=== PATIENT | male | born 1985 | race Caucasian/White ===

== ENCOUNTER 2019-01-01 23:09 | Emergency (ER) | payer SELFPAY ==
[~2019-01-01] VITALS: Ht 170.2 cm; Wt 77.3 kg
[~2019-01-01 23:09] MED LIST: KEFLEX500 MG PO; NO HOME MEDICATIONS
[2019-01-01 23:28] VITALS: TEMP 96.8
[2019-01-02 00:07] LABS: BASO # 0.1 (0.0-0.2); BASO % 0.5 % (0.0-2.0); EOS % 0.2 % (0-4.0); GRAN # 14.6 (1.4-6.5); GRAN % 88.6 % (42.2-75.2); HEMATOCRIT 35.6 % (42.0-52.0); HEMOGLOBIN 11.2 g/dl (13.5-18.0); LYMPH # 1.2 (1.2-3.4); LYMPH % 7.2 % (20.0-51.0); MEAN CELL VOLUME 63 fl (80.0-100.0); MEAN CORPUSCULAR HEMOGLOBIN 20 pg (27.0-31.0); MEAN CORPUSCULAR HGB CONC 32 g/dl (33.0-37.0); MONO # 0.5 (0.1-0.6); PLATELET COUNT 288 K/mm3 (130-400); RED BLOOD COUNT 5.64 M/mm3 (4.20-5.60); REDCELL DISTRIBUTION WIDTH-CV 15.4 % (11.5-14.5)
[2019-01-02 00:15] LABS: ALANINE AMINOTRANSFERASE 35 U/L (21-72); ALBUMIN 4.4 gm/dL (3.5-5.0); ALKALINE PHOSPHATASE 65 U/L (50-136); ANION GAP 12 mmol/L (7-16); AST,SGOT 26 U/L (15-37); BILIRUBIN,TOTAL 0.7 mg/dL (0.0-1.0); BLOOD UREA NITROGEN 18 mg/dL (9-20); CALCIUM 9.4 mg/dL (8.4-10.2); CARBON DIOXIDE 25 mmol/L (22-30); CHLORIDE 101 mmol/L (98-107); CREATININE, serum 0.87 (0.66-1.25); GLUCOSE 185 mg/dL (74-106); LIPASE 37 U/L (23-300); MAGNESIUM 1.8 mg/dL (1.6-2.3); POTASSIUM 3.9 mmol/L (3.4-5.0); SODIUM 138 mmol/L (137-145); TOTAL PROTEIN 7.9 gm/dL (6.4-8.2)
[2019-01-02 00:32] LABS: COLLECTION METHOD CLEAN CATCH
[2019-01-02 00:41] LABS: ALCOHOL(ethanol),MEDICAL < 10 mg/dL; C-REACTIVE PROTEIN < 0.5 mg/dL (0.0-0.9)
[2019-01-02 00:50] LABS: MUCOUS Present /lpf; PH 7 (5-8); SQUAMOUS EPITHELIAL None Seen /hpf; URINE APPEARANCE Clear; URINE BACTERIA None Seen /hpf; URINE BILIRUBIN Negative (NEGATIVE); URINE BLOOD Negative (NEGATIVE); URINE COLOR Yellow; URINE GLUCOSE Negative (NEGATIVE); URINE KETONE Trace (NEGATIVE); URINE LEUKOCYTE ESTERASE Negative (NEGATIVE); URINE NITRATE Negative (NEGATIVE); URINE PROTEIN(semi-quant) 1+ (NEGATIVE); URINE RBC 0-2 /hpf; URINE UROBILINOGEN Negative (NEGATIVE)
[2019-01-02] MEDS ORDERED: FLAGYL500 MG PO (03:02)
[2019-01-02] MEDS ORDERED: CIPRO 500MG TA500 MG PO (03:02)
[2019-01-02] MEDS ORDERED: PHENERGAN 25 TA25 MG PO (03:02)
[2019-01-02 03:23] VITALS: BP 122/66; PULSE 68
[2019-01-02] MEDS ORDERED: MOTRIN 600600 MG/TAB PO (18:19)
[2019-01-02] MEDS ORDERED: COLACE 100100 MG/CAP PO (18:19)
[2019-01-02] MEDS ORDERED: PERCOCET 325 MG1 TA2 PO (18:20)
== END 2019-01-02 03:23 | disposition home or self-care (01) ==
LOC: COL.ER 23:09
PROVIDERS: Emergency Medicine
DX: R11.10 Vomiting, unspecified (principal); R10.84 Generalized abdominal pain
CPT/HCPCS: J1170; J2405; J2550; J7030; Q9967

== ENCOUNTER 2019-01-02 08:36 | Observation (INO) | payer SELFPAY ==
[2019-01-02] VITALS (12 sets, daily range): BP systolic 115–140; BP diastolic 72–87; PULSE 18–99; TEMP 97.1–98.8
[~2019-01-02] VITALS: Ht 170.2 cm; Wt 78.1 kg
[~2019-01-02 08:36] MED LIST changes: +CIPRO 500MG TA500 MG PO; +FLAGYL500 MG PO; +PHENERGAN 25 TA25 MG PO
--- NOTE | 2019-01-02 13:01 | NUR ---
Patient alert and oriented, answers questions appropriately. See assessment. Abdomen soft, non distended, tender to palpation. Bowel sounds hyperactive x4 quads. +Flatus. Last oral intake 1999, 01-01-19. Acknowledges need for appendectomy. No other c/o at this time.
--- NOTE | 2019-01-02 14:00 | NUR ---
Chlorhexadine shower completed.
--- NOTE | 2019-01-02 15:07 | NUR ---
SW met with the patient to discuss a discharge plan. The patient lives in [place]. The patient does not use any DME and reports independence with ADLs. The patient's PCP is Linda Delaney APRN and [place] [facility] [place] stated he cannot afford medications. The patient does not have advanced directives in the EMR, but was interested in obtaining a DPOA-HC form. SW provided the form to the patient. The patient is self pay; [facility] contacted [facility] in finance to refer the patient for financial services. The patient plans to return home upon discharge. SW will continue to follow.
[2019-01-02] MEDS ORDERED: MOTRIN 600600 MG/TAB PO (18:19)
[2019-01-02] MEDS ORDERED: COLACE 100100 MG/CAP PO (18:19)
[2019-01-02] MEDS ORDERED: PERCOCET 325 MG1 TA2 PO (18:20)
--- NOTE | 2019-01-02 19:05 | NUR ---
TO ROOM 347 FROM PACU. REPORT RECEIVED. ASSUMED CARE. ASSESSMENT COMPLETE. VS STABLE. LAP SITES [id number] SET. DENIES PAIN. UP TO BATHROOM-VOIDED WITHOUT DIFFICULTY. ICE WATER AND JUICE-REFUSING ANY OTHER CLEARS. DENIES N/V. ORIENTED TO ROOM. CALL LIGHT WITHIN REACH. BED IN LOW POSITION. WHEELS LOCKED. WILL MONITOR.
--- NOTE | 2019-01-03 03:41 | NUR ---
HAS DONE WELL THROUGH THE NIGHT. VOIDING. AMBULATED IN THE HALLWAY X2 TIMES FOR APPROX 300 FEET TOTAL. TOLERATING PO. VS STABLE. LAP SITESX3 CLEAN-MACKAY SET. DENIES QUESTIONS OR CONCERNS-STATES HE SHOULD BE DISCHARGED THIS AM. DID RECEIVED ONE DOSE OF PERCOCET AT 0100. WILL CONTINUE TO MONITOR.
[2019-01-03 03:58] VITALS: BP 121/56; PULSE 67; TEMP 98.6
--- NOTE | 2019-01-03 09:00 | NUR ---
Patient alert and oriented, answers questions appropriately. See assessment. Abdomen soft, non tender, non distended. Bowel sounds active x4 quads. +Flatus. Lap sites with edges well approximated, no drainage noted. Post op exercises reviewed. No c/o at this time.
[2019-01-03 09:24] VITALS: BP 119/65; PULSE 67; TEMP 98.3
--- NOTE | 2019-01-03 11:42 | NUR ---
Discharge instructions reviewed with patient and family, verbalized understanding. Discharged via wheelchair to auto/home with family [id number].
--- NOTE | 2019-01-03 13:45 | NUR ---
Initial visit; Patient thanked [employer] for looking in on him and offering God's blessings.
== END 2019-01-03 11:40 | disposition home or self-care (01) ==
LOC: COL.ER 08:36 → SURG 08:57
PROVIDERS: ADMIT Surgery
DX: K35.80 Unspecified acute appendicitis (principal); F17.210 Nicotine dependence, cigarettes, uncomplicated; F17.220 Nicotine dependence, chewing tobacco, uncomplicated
CPT/HCPCS: G0378; J0744; J2270; J2310; J2405; J2543; J2704; J7030; J7120

== ENCOUNTER → 2019-01-19 | Outpatient (CLI) | payer SELFPAY ==
[~2019-01-19] MED LIST changes: +COLACE 100100 MG/CAP PO; +MOTRIN 600600 MG/TAB PO; +PERCOCET 325 MG1 TA2 PO
== END ==
LOC: MC.RAD 08:28
DX: D17.1 Benign lipomatous neoplasm of skin and subcutaneous tissue of trunk (principal)

== ENCOUNTER 2019-02-01 05:16 | Day surgery (SDC) | payer SELFPAY ==
[~2019-02-01] VITALS: Ht 170.2 cm; Wt 80.6 kg
[2019-02-01 05:39] VITALS: BP 130/91; PULSE 81; TEMP 97.5
[2019-02-01] MEDS ORDERED: MOTRIN 200200 MG/TAB PO (05:46)
[2019-02-01 08:43] VITALS: TEMP 98.6
[2019-02-01] MEDS ORDERED: PERCOCET 325 MG1 TA2 PO (08:56)
[2019-02-01] MEDS ORDERED: MOTRIN 600600 MG/TAB PO ×2 (08:56→09:00)
[2019-02-01] MEDS ORDERED: TYLENOL 325MG325 MG PO (09:00)
[2019-02-01 09:05] VITALS: BP 140/87; PULSE 78
--- NOTE | 2019-02-01 09:05 | NUR ---
Patient returns to room 8 per cart from PACU and is awake and alert. Denies pain or nausea. Temp 97.4 and room air sats 99%. Shrestha set dressing dry and intact on the left axillary site. IV fluids infusing and call light in reach. Patient given water to drink and muffin to eat.
[2019-02-01 09:20] VITALS: BP 146/87; PULSE 80
--- NOTE | 2019-02-01 09:20 | NUR ---
Awake and talking on phone.
[2019-02-01 09:35] VITALS: BP 131/78; PULSE 78
--- NOTE | 2019-02-01 09:35 | NUR ---
Room air sats 95% and sipping on coffee. Friend in room. Continues to deny pain or nausea.
[2019-02-01 09:50] VITALS: BP 133/83; PULSE 81
--- NOTE | 2019-02-01 09:50 | NUR ---
Assisted up to the bathroom and is able to void and returns to room. IV discontinued and site is free of redness. Patient dresses self.
--- NOTE | 2019-02-01 10:05 | NUR ---
Given dismissal instructions and voices understanding of home cares and follow up as scheduled. Given script for Tylenol and Motrin for pain. Shrestha set dressing remains dry and intact.
--- NOTE | 2019-02-01 10:10 | NUR ---
Patient dismissed to home per private vehicle driven by friend and escorted to the front door and into vehicle with dismissal instructions in hand.
== END 2019-02-01 10:10 | disposition home or self-care (01) ==
LOC: SDCO 05:16
DX: D17.22 Benign lipomatous neoplasm of skin and subcutaneous tissue of left arm (principal); I10 Essential (primary) hypertension; F17.210 Nicotine dependence, cigarettes, uncomplicated; K21.9 Gastro-esophageal reflux disease without esophagitis
CPT/HCPCS: J0690; J1100; J1885; J2405; J2704; J3010; J7120

== ENCOUNTER 2020-07-08 12:06 | Emergency (ER) | payer SELFPAY ==
[~2020-07-08] VITALS: Ht 170.2 cm; Wt 84.1 kg
[~2020-07-08 12:06] MED LIST changes: +MOTRIN 200200 MG/TAB PO; +TYLENOL 325MG325 MG PO
[2020-07-08 13:26] LABS: BASO # 0.1 (0.0-0.2); BASO % 0.7 % (0.0-2.0); EOS # 0.4 (0.0-0.7); EOS % 3.4 % (0-4.0); GRAN # 8.4 (1.4-6.5); HEMATOCRIT 42.5 % (42.0-52.0); HEMOGLOBIN 13.1 g/dl (13.5-18.0); LYMPH # 1.3 (1.2-3.4); MEAN CELL VOLUME 62 fl (80.0-100.0); MEAN CORPUSCULAR HEMOGLOBIN 19 pg (27.0-31.0); MEAN CORPUSCULAR HGB CONC 31 g/dl (33.0-37.0); MEAN PLATELET VOLUME 10.5 fl (7.4-10.4); MONO % 8.6 % (1.7-9.3); PLATELET COUNT 271 K/mm3 (130-400); RED BLOOD COUNT 6.87 M/mm3 (4.20-5.60); REDCELL DISTRIBUTION WIDTH-CV 17.2 % (11.5-14.5)
[2020-07-08 13:34] LABS: ALBUMIN 4.8 gm/dL (3.5-5.0); BILIRUBIN,TOTAL 0.7 mg/dL (0.0-1.0); C-REACTIVE PROTEIN 1.3 mg/dL (0.0-0.9); CALCIUM 9.6 mg/dL (8.4-10.2); CREATININE, serum 0.82 (0.66-1.25); POTASSIUM 4.4 mmol/L (3.4-5.0); TOTAL PROTEIN 8.2 gm/dL (6.4-8.2)
[2020-07-08] MEDS ORDERED: OMNICEF 300MG300 MG PO (15:14)
[2020-07-08] MEDS ORDERED: PREDNISONE20 MG PO (15:14)
[2020-07-08 15:38] VITALS: BP 135/80; PULSE 87; TEMP 98.1
== END 2020-07-08 15:39 | disposition home or self-care (01) ==
LOC: COL.ER 12:06
PROVIDERS: Physician Assistant
DX: J01.90 Acute sinusitis, unspecified (principal); J40 Bronchitis, not specified as acute or chronic; J98.01 Acute bronchospasm; H66.93 Otitis media, unspecified, bilateral; F17.210 Nicotine dependence, cigarettes, uncomplicated